=== PATIENT | male | born 1980 | race African-American/Black ===

== ENCOUNTER 2017-01-24 14:49 | Emergency (ER) | payer BC ==
[2017-01-24 16:29] VITALS: BP 127/80
== END 2017-01-24 16:29 | disposition home or self-care (01) ==
LOC: ED 14:49
DX: J02.9 Acute pharyngitis, unspecified (principal)

== ENCOUNTER 2017-09-02 01:07 | Emergency (ER) | payer BC ==
[~2017-09-02] VITALS: Ht 180.3 cm; Wt 69.8 kg
[2017-09-02 01:11] VITALS: Ht 180.3 cm; Wt 69.8 kg
[2017-09-02 02:10] LABS: BASOPHIL % 1.1 % (0-2); PLATELET COUNT 324 x10^3mcL (130-400); RED CELL DISTRIBUTION WIDTH 11.5 % (11.5-14.5)
[2017-09-02 02:15] LABS: CALCIUM 8.7 mg/dL (8.5-10.1); CARBON DIOXIDE 29.2 mmol/L (21-32); CHLORIDE SERUM 104 mmol/L (98-107); CREATININE SERUM 1.3 mg/dL (0.7-1.3); GFR1 > 60 mL/min; GLUCOSE SERUM 98 mg/dL (74-106); POTASSIUM SERUM 3.5 mmol/L (3.5-5.1); SODIUM SERUM 141 mmol/L (136-145)
[2017-09-02 02:21] LABS: ALBUMIN 3.8 g/dL (3.4-5.0); ALKALINE PHOSPHATASE 45 U/L (46-116); ALT/SGPT 27 U/L (16-63); AST/SGOT 18 U/L (15-37); BILIRUBIN TOTAL 1.3 mg/dL (0.20-1.00); LIPASE 188 IU/L (73-393); TOTAL PROTEIN, SERUM 7.3 g/dL (6.4-8.2)
[2017-09-02 03:55] VITALS: BP 114/78
== END 2017-09-02 03:55 | disposition home or self-care (01) ==
LOC: ED 01:07
PROVIDERS: Emergency Medicine
DX: R10.13 Epigastric pain (principal); R20.0 Anesthesia of skin; R07.89 Other chest pain
CPT/HCPCS: J1885; Q0092; Q0162